=== PATIENT | male | born 1990 | race Caucasian/White ===

== ENCOUNTER 2025-01-05 14:41 | Emergency (ER) | payer OTHER ==
[~2025-01-05] VITALS: Ht 175.3 cm; Wt 82.3 kg
[2025-01-05 16:34] LABS: PLATELET COUNT (AUTO) 372 K/uL (150-450); RED BLOOD CELL COUNT(AUTO) 4.21 MIL/uL (4.50-5.90); RED CELL DISTRIBUTION WIDTH 13.8 % (11.5-14.5); WHITE BLOOD COUNT (AUTO) 6.9 K/uL (4.5-11.0)
[2025-01-05 16:42] LABS: CALCIUM, TOTAL 8.9 mg/dL (8.8-10.5); CREATININE 0.92 mg/dL (0.60-1.30); GLOMERULAR FILTR. RATE CALC > 60 mL/min (>60); GLUCOSE,RANDOM 81 mg/dL (70-110); SODIUM SERUM 144 mmol/L (136-145); UREA NITROGEN, BLOOD 17 mg/dL (7-18)
[2025-01-05 16:47] LABS: ASPARTATE AMINOTRANSFERASE 22 U/L (15-37); TOTAL PROTEIN, SERUM 6.8 g/dL (6.4-8.2)
[2025-01-05 16:51] LABS: ALCOHOL, BLOOD (SERUM) < 3 mg/dL (0-10)
[2025-01-05 18:18] LABS: COVID AG,FIA SOURCE NPH
[2025-01-05 18:47] LABS: SARS-COV2 (COVID) ANTIGEN,FIA Negative (Negative)
[2025-01-05 20:02] VITALS: TEMP 98.1
[2025-01-05 20:42] VITALS: BP 88/52; PULSE 61; RESP 16; O2SAT 96
[2025-01-05 20:55] LABS: APPEARANCE,URINE HAZY (CLEAR); GLUCOSE, URINE (UA) NEGATIVE (NEGATIVE); LEUKOCYTE ESTERASE ,URINE NEGATIVE (NEGATIVE); NITRATE,URINE NEGATIVE (NEGATIVE); OCCULT BLOOD,URINE NEGATIVE (NEGATIVE); PH,URINE DRUG SCREEN 8.0 (5.0-8.0); SPECIFIC GRAVITIY, URINE 1.029 (1.003-1.030)
[2025-01-05 21:02] LABS: ALCOHOL, URINE DRUG SCREEN NEGATIVE (NEGATIVE); AMPHET/METH SCREEN,URINE NEGATIVE (NEGATIVE); BARBITURATE SCREEN, URINE NEGATIVE (NEGATIVE); CANNABINOID SCREEN,URINE NEGATIVE (NEGATIVE); COCAINE SCREEN,URINE NEGATIVE (NEGATIVE); METHADONE SCREEN, URINE NEGATIVE (NEGATIVE)
== END 2025-01-05 22:11 | disposition home or self-care (01) ==
LOC: EMS 14:41
DX: R21 Rash and other nonspecific skin eruption (principal); F20.9 Schizophrenia, unspecified; F31.9 Bipolar disorder, unspecified; Z88.0 Allergy status to penicillin; L29.9 Pruritus, unspecified; Z20.822 Contact with and (suspected) exposure to COVID-19
CPT/HCPCS: 99283; 87426; 86592; 80053; 81003; 85025; 36415; 80307; G0480